=== PATIENT | female | born 1995 | race Hispanic/Latino ===

== ENCOUNTER 2016-10-21 23:37 | Emergency (ER) | payer OTHER ==
[~2016-10-21] VITALS: Ht 154.9 cm; Wt 64.0 kg
[~2016-10-21 23:37] MED LIST: AMOXICILLIN500 MG PO; BACLOFEN10 MG PO; BENZOYL PER; BENZOYL PER EX; BENZOYL PER TOP; CEPHALEXIN500 MG PO; CHERATUSSIN PO; CLINDAGEL1 % TOP; DIAZEPAM2 M1 PO; FAMOTIDINE20 M2 PO; FERR SULFATE325 MG PO; FLONASE NASAL50 MCG; FLUMIST NASA1 LIQ; FLUZONE SPLT1 M1 IM; GARDASIL IM; HAVRIX720 UNI1 IM; IBUPROFEN400 MG PO; INDOCIN25 MG PO; LORTAB 5/3255 MG PO; MACRODANTIN100 MG PO; MENACTRA IM; MENACTRA PO; MIRALAX3350 N1 PO; MOTRIN400 MG PO; MUPIROCIN2 % EX; NEURONTIN300 MG PO; OXYCODONE5 M1 PO; PERIACTIN2 MG PO; PRENATA3 PO; RETIN-A MICR0.04 % TOP; SENNA1 TAB PO; TIZANIDINE2 MG PO; ULTRAM50 M1 PO
[2016-10-21] MEDS ORDERED: FLONASE AL50 MCG/ACT NAB (23:48)
[2016-10-22 00:36] VITALS: BP 125/71
== END 2016-10-22 00:38 | disposition home or self-care (01) | DRG 866 ==
LOC: ED 23:37
DX: B34.9 Viral infection, unspecified (principal)

== ENCOUNTER 2017-02-25 02:04 | Emergency (ER) | payer OTHER ==
[~2017-02-25] VITALS: Ht 157.5 cm; Wt 63.2 kg
[~2017-02-25 02:04] MED LIST changes: +FLONASE AL50 MCG/ACT NAB
[2017-02-25 03:09] LABS: HEMATOCRIT 40.7 % (37.0-47.0); HEMOGLOBIN 13.5 g/dl (12.0-16.0); IMMATURE GRANULOCYTES 0.2 % (0.0-1.0); MEAN CORPUSCULAR HGB 29.9 pG CALC (26.0-32.0); MEAN CORPUSCULAR HGB CONC 33.2 g/L CALC (32.0-36.0); NEUT# 4.45 thou/uL (2.00-7.15); RED BLOOD COUNT 4.52 mill/uL (4.20-5.60); RED CELL DISTRI WIDTH 12.9 % (11.5-15.5)
[2017-02-25 03:26] LABS: ALBUMIN 5.4 g/dL (3.2-5.0); ALKALINE PHOSPHATASE 147 u/l (38-126); ANION GAP 21 (6-22 (CALC)); BILIRUBIN, TOTAL 0.6 mg/dL (0.0-1.4); BUN 13 mg/dL (7-17); BUN/CREATININE RATIO 28 (12-20 (CALC)); CALCIUM 10.1 mg/dL (8.4-10.2); CARBON DIOXIDE 25 mmol/l (22-30); CHLORIDE 106 mmol/l (95-108); CREATININE 0.5 mg/dL (0.5-1.0); GFR > 60 ML/MIN (>=60 (CALC)); GFR FOR AFR.AMER. > 60 ML/MIN (>=60 (CALC)); GLUCOSE 103 mg/dL (65-105); POTASSIUM 3.5 mmol/l (3.5-5.1); SGOT/AST 39 u/l (14-36); SGPT/ALT 62 u/l (9-52); SODIUM 148 mmol/l (137-146); TOTAL PROTEIN 9.7 g/dL (6.3-8.2)
[2017-02-25 03:39] LABS: MYOGLOBIN 22 ng/mL (0 - 62)
[2017-02-25 04:17] LABS: URINE BILIRUBIN - DIPSTICK NEGATIVE (NEGATIVE); URINE BLOOD DIPSTICK NEGATIVE (NEGATIVE); URINE CLARITY SLIGHT CLOUDY; URINE COLOR YELLOW; URINE GLUCOSE - DIPSTICK NEGATIVE (NEGATIVE); URINE KETONE NEGATIVE (NEGATIVE); URINE LEUK ESTERASE TRACE (NEGATIVE); URINE NITRITE - DIPSTICK NEGATIVE (Negative); URINE PH 6.5 (4.5-8.0); URINE PROTEIN - DIPSTICK NEGATIVE (NEG-TRACE); URINE UROBILINOGEN - DIPSTICK 0.2 E.U./dL (0.2)
[2017-02-25 04:19] LABS: BARBITURATES NEGATIVE (NEGATIVE); COCAINE NEGATIVE (NEGATIVE); METHADONE NEGATIVE (NEGATIVE); OXCYCODONE NEGATIVE (NEGATIVE); TETRAHYDROCANNABIONOL NEGATIVE (NEGATIVE); TRICYLIC ANTIDEPRESSANTS NEGATIVE (NEGATIVE)
[2017-02-25 05:00] VITALS: BP 117/63
== END 2017-02-25 05:00 | disposition home or self-care (01) | DRG 310 ==
LOC: ED 02:04
PROVIDERS: Emergency Medicine
DX: R00.2 Palpitations (principal); F41.9 Anxiety disorder, unspecified; R42 Dizziness and giddiness

== ENCOUNTER 2017-10-04 06:02 | Emergency (ER) | payer OTHER ==
[~2017-10-04] VITALS: Ht 157.5 cm; Wt 65.4 kg
[2017-10-04 07:06] LABS: HEMATOCRIT 43.1 % (37.0-47.0); HEMOGLOBIN 14.4 g/dl (12.0-16.0); IMMATURE GRANULOCYTES 0.2 % (0.0-1.0); MEAN CELL VOLUME 90.2 fL CALC (80.0-100.0); MEAN CORPUSCULAR HGB 30.1 pG CALC (26.0-32.0); MEAN CORPUSCULAR HGB CONC 33.4 g/L CALC (32.0-36.0); NEUT# 5.54 thou/uL (2.00-7.15); RED BLOOD COUNT 4.78 mill/uL (4.20-5.60); RED CELL DISTRI WIDTH 12.8 % (11.5-15.5)
[2017-10-04 07:25] LABS: ALBUMIN 4.8 g/dL (3.2-5.0); ALKALINE PHOSPHATASE 117 u/l (38-126); ANION GAP 18 (6-22 (CALC)); BILIRUBIN, TOTAL 0.4 mg/dL (0.0-1.4); BUN 14 mg/dL (7-17); BUN/CREATININE RATIO 29 (12-20 (CALC)); CARBON DIOXIDE 25 mmol/l (22-30); CHLORIDE 104 mmol/l (95-108); CREATININE 0.5 mg/dL (0.5-1.0); GFR > 60 ML/MIN (>=60 (CALC)); GFR FOR AFR.AMER. > 60 ML/MIN (>=60 (CALC)); POTASSIUM 3.7 mmol/l (3.5-5.1); SGOT/AST 26 u/l (14-36); SGPT/ALT 47 u/l (9-52); SODIUM 143 mmol/l (137-146); TOTAL PROTEIN 8.7 g/dL (6.3-8.2)
[2017-10-04 07:42] VITALS: BP 117/75
== END 2017-10-04 07:50 | disposition still patient (30) | DRG 761 ==
LOC: ED 06:02
PROVIDERS: Family Medicine
DX: N93.8 Other specified abnormal uterine and vaginal bleeding (principal); R55 Syncope and collapse

== ENCOUNTER 2017-10-10 15:50 | Emergency (ER) | payer OTHER ==
[~2017-10-10] VITALS: Ht 157.5 cm; Wt 65.4 kg
[2017-10-10 17:02] LABS: HEMATOCRIT 38.9 % (37.0-47.0); HEMOGLOBIN 13.1 g/dl (12.0-16.0); IMMATURE GRANULOCYTES 0.3 % (0.0-1.0); MEAN CELL VOLUME 88.8 fL CALC (80.0-100.0); MEAN CORPUSCULAR HGB 29.9 pG CALC (26.0-32.0); MEAN CORPUSCULAR HGB CONC 33.7 g/L CALC (32.0-36.0); NEUT# 10.03 thou/uL (2.00-7.15); RED BLOOD COUNT 4.38 mill/uL (4.20-5.60); RED CELL DISTRI WIDTH 12.5 % (11.5-15.5)
[2017-10-10 17:18] LABS: ALKALINE PHOSPHATASE 140 u/l (38-126); ANION GAP 23 (6-22 (CALC)); BILIRUBIN, TOTAL 0.6 mg/dL (0.0-1.4); BUN 9 mg/dL (7-17); BUN/CREATININE RATIO 20 (12-20 (CALC)); CARBON DIOXIDE 20 mmol/l (22-30); CHLORIDE 104 mmol/l (95-108); CREATININE 0.5 mg/dL (0.5-1.0); GFR > 60 ML/MIN (>=60 (CALC)); GFR FOR AFR.AMER. > 60 ML/MIN (>=60 (CALC)); MAGNESIUM 1.6 mg/dL (1.6-2.3); POTASSIUM 3.5 mmol/l (3.5-5.1); SGOT/AST 23 u/l (14-36); SGPT/ALT 42 u/l (9-52); SODIUM 144 mmol/l (137-146); TOTAL PROTEIN 9.1 g/dL (6.3-8.2)
[2017-10-10] MEDS ORDERED: XANAX0.25 MG PO (18:01)
[2017-10-10 18:11] VITALS: BP 138/87
== END 2017-10-10 18:12 | disposition home or self-care (01) | DRG 880 ==
LOC: ED 15:50
PROVIDERS: Emergency Medicine
DX: F41.9 Anxiety disorder, unspecified (principal); E83.39 Other disorders of phosphorus metabolism; R25.8 Other abnormal involuntary movements; R06.89 Other abnormalities of breathing
CPT/HCPCS: J2060

== ENCOUNTER 2022-02-26 09:30 | Emergency (ER) | payer OTHER ==
[~2022-02-26] VITALS: Ht 157.5 cm; Wt 56.8 kg
[~2022-02-26 09:30] MED LIST changes: +XANAX0.25 MG PO
[2022-02-26 10:22] LABS: HEMATOCRIT 40.1 % (37.0-47.0); HEMOGLOBIN 12.8 g/dl (12.0-16.0); IMMATURE GRANULOCYTES 0.2 % (0.0-5.0); MEAN CELL VOLUME 85.7 fL CALC (80.0-100.0); MEAN CORPUSCULAR HGB 27.4 pG CALC (26.0-32.0); MEAN CORPUSCULAR HGB CONC 31.9 g/dL CAL (32.0-36.0); NEUT# 4.19 thou/uL (2.00-7.15); RED BLOOD COUNT 4.68 mill/uL (4.20-5.60)
[2022-02-26 10:41] LABS: ALBUMIN 5.2 g/dL (3.2-5.0); ALKALINE PHOSPHATASE 108 u/l (38-126); ANION GAP 21 (6-22 (CALC)); BUN 15 mg/dL (7-17); BUN/CREATININE RATIO 34 (12-20 (CALC)); CARBON DIOXIDE 20 mmol/l (22-30); CHLORIDE 104 mmol/l (95-108); CREATININE 0.4 mg/dL (0.5-1.0); GFR FOR AFR.AMER. > 60 ML/MIN (>=60 (CALC)); GFR OTHER RACES > 60 ML/MIN (>=60 (CALC)); POTASSIUM 3.7 mmol/l (3.5-5.1); SGOT/AST 24 u/l (14-36); SODIUM 141 mmol/l (137-146); TOTAL PROTEIN 9.6 g/dL (6.3-8.2)
[2022-02-26 10:42] LABS: BILIRUBIN, TOTAL 0.6 mg/dL (0.0-1.4)
[2022-02-26 11:33] LABS: TSH, 3RD GENERATION 2.02 uIU/mL (0.47 - 4.68)
[2022-02-26 12:29] VITALS: BP 107/67
== END 2022-02-26 12:29 | disposition home or self-care (01) ==
LOC: ED 09:30
PROVIDERS: Family Medicine
DX: R06.02 Shortness of breath (principal)